=== PATIENT | female | born 1980 | race Caucasian/White ===

== ENCOUNTER 2021-06-23 16:42 | Emergency (ER) | payer MEDICAID, SELFPAY ==
--- NOTE | ~2021-06-23 | CT_ITS ---
CT ANGIOGRAM NECK CLINICAL INFORMATION: History of vertebral artery dissection. Rule out dissection. COMPARISON: CTA of the neck 07/19/2020. TECHNIQUE: A multidetector CTA acquisition of the neck is obtained following the administration of 70 mL of Omnipaque 350 intravenous contrast without complication. Vascular post-processing, including 2-dimensional and 3-dimensional reformatted images were created and reviewed on an independent workstation under concurrent physician supervision. Stenoses are graded per criteria similar to NASCET. This CT examination was performed using dose optimization techniques as appropriate, variously including the following: *Automated exposure control *Adjustment of mA and/or kV according to patient size (this includes techniques or standardized protocols for targeted exams where dose is matched to indication/reason for exam; i.e. extremities or head) *Use of iterative reconstruction technique FINDINGS: The right vertebral artery is dominant and the vertebral arteries are widely patent throughout their cervical course. The common carotid arteries, the carotid bifurcations, and the cervical internal carotid arteries are widely patent. There is no evidence of arterial dissection. Partially imaged intracranial arterial vasculature is unremarkable. The partially imaged intracranial compartment is unremarkable. No significant soft tissue findings are appreciated within the neck. There are no acute osseous findings. Reversal of the cervical lordosis. The imaged upper lungs are clear. Mild secretions within the right sphenoid sinus and mild mucosal thickening within the maxillary sinuses bilaterally. CT/CT angio neck IMPRESSION: Unremarkable CTA of the neck. There is no evidence of arterial dissection.
--- NOTE | ~2021-06-23 | XR_ITS ---
EXAMINATION: XR SHOULDER, RIGHT CLINICAL INFORMATION: Shoulder pain COMPARISON: None TECHNIQUE: Three views of the right shoulder. FINDINGS: The bones and soft tissues are normal. No fracture. Glenohumeral and acromioclavicular alignment is anatomic with normal joint space. No abnormal soft tissue calcifications. XR/XR shoulder RT min 2V IMPRESSION: Normal right shoulder.
[2021-06-23 17:14] VITALS: BP 138/91; PULSE 86; RESP 22; TEMP 37.6; O2SAT 98; BMI 22.4
[2021-06-23 17:56] LABS: Glucose Urine UA NEG (NEG); Leukocyte Esterase Urine NEG (NEG); Nitrite Urine NEG (NEG); Specific Gravity - Urine 1.015 (1.005-1.025); Urine Blood TRACE (NEG); Urine Ketones 5 MG/DL (NEG); Urine Protein NEG (NEG-TRACE)
[2021-06-23 17:57] LABS: Appearance Urine CLEAR; Color Urine STRAW
[2021-06-23 18:06] LABS: Bacteria Urine TRACE /LPF; RBC Urine 0-2 /HPF (0); Squamous Epithelial Cell Urine TRACE /LPF; WBC Urine 0-2 /HPF (0-4)
[2021-06-23 18:46] VITALS: BP 148/83; PULSE 69; RESP 18; TEMP 36.6; O2SAT 100
--- NOTE | 2021-06-23 18:46 | ED.EXTPRO ---
HPI - Extremity Problem General Chief complaint: Extremity Injury, Upper Stated complaint: sholder pain Time Seen by Provider: 06/23/21 18:28 History of Present Illness HPI Narrative: Patient complains of right neck and shoulder pain worsening over past 2 days, pain is severe and patient does not recall any injury. Pain is worse with movement Patient has a history of vertebral artery dissection in the past that was accompanied by neurologic symptoms, today she has no headache no numbness or weakness no tingling no vision change Related Data Previous Rx's Medication Instructions Recorded hydrocodone-acetaminophen 1 tab PO Q6H PRN #14 tab 06/23/21 ibuprofen 600 mg PO Q6H PRN #20 tab 06/23/21 Allergies Allergy/AdvReac Type Severity Reaction Status Date / Time cayenne [CAYENNE] Allergy Severe ANAPHYLAXIS Unverified 08/17/20 19:40 cumin [CUMIN] Allergy Severe ANAPHYLAXIS Unverified 08/17/20 19:40 CHILI POWDER Allergy Severe ANAPHYLAXIS Uncoded 08/17/20 19:40 Review of Systems Review of Systems: Positive for right-sided lower neck trapezius and shoulder pain Negatives no fever no chills no dizziness no weakness no fainting no feeling faint no headache no chest pain no shortness of breath no vision changes no nausea or vomiting no rash no confusion no difficulty forming words no balance issues no motor weakness no loss of sensation Yes all other systems are reviewed and are negative [facility] Past Medical History [facility] Narrative: Patient had vertebral artery dissection in 2014 Source: nursing notes reviewed Surgical History (Updated 06/23/21 @ 17:17 by Graham Davis) H/O tubal ligation Social History Social History Advance Directives: No Advance Directives Information Provided: No Patient : No Physical Exam Vital Signs: Vital Signs: Last Vital Signs Temp 97.8 F 06/23/21 18:46 Pulse 69 06/23/21 18:46 Resp 18 06/23/21 18:46 BP 148/83 H 06/23/21 18:46 Pulse Ox 100 06/23/21 18:46 Body Mass Index 22.4 General appearance no acute distress The head is normocephalic atraumatic Pupils equal round reactive to light Extraocular motions are intact The neck was supple with full range of motion, there was very mild right lateral neck pain as well as right anterior trapezius pain The chest was clear to auscultation bilateral with full symmetric equal breath sounds, there was no chest wall tenderness, skin was normal in appearance The abdomen soft nontender The extremities the right shoulder had pain with extension abduction and external rotation, it was neurovascular intact distal, there was tenderness to the deltoid area the posterior shoulder and the superior shoulder and range of motion was limited there was no swelling no redness Other extremities were normal Skin no rash Neuro cranial nerves 2-12 intact as tested patient was A&O x3, speech both expression and understanding were normal, gait and balance were normal, motor was 5/5 x4 Course Course Course Narrative: Patient with right neck and right shoulder pain with history of vertebral artery dissection is very uncomfortable, pain is reproduced by movement, there are no neurologic symptoms, neurologic exam was normal Case was discussed with attending physician Dr. Bae who advised get a CTA of the neck to rule out vertebral artery dissection, head imaging was not needed as patient has no headache or neurologic symptoms There were no acute abnormalities CT was done and with CT pending case was signed out to physician latoya to follow up and address CT a of the neck to rule out vertebral artery dissection MDM - Extremity (Nontraumatic) Lab Data Attestation: I reviewed the patient's lab results. Result diagrams: 06/23/21 18:50 06/23/21 18:50 Labs: Lab Results 06/23/21 06/23/21 06/23/21 Range/Units 17:36 17:36 18:50 WBC 9.6 (4.8-10.8) X10*3/uL RBC 5.03 (4.20-5.50) X10*6/uL Hgb 14.5 (12.0-16.0) g/dl Hct 44.0 (37-47) % MCV 87.5 (80-98) fL MCH 28.8 (27.0-33.0) pg MCHC 33.0 (31.0-35.0) g/dl RDW 12.4 (11.0-16.0) % Plt Count 273 (160-400) X10*3/uL MPV 9.7 (9.4-12.3) fL Immature Gran % (Auto) 0.2 (0.0-0.4) % Neut % (Auto) 58.2 (45-73) % Lymph % (Auto) 35.7 (20-40) % Ralls % (Auto) 5.1 (2-11) % Eos % (Auto) 0.5 (0-4) % Baso % (Auto) 0.3 (0-2) % Lymph # (Auto) 3.4 (1.2-4.9) X10*3/uL Ralls # (Auto) 0.5 (0.1-1.2) X10*3/uL Eos # (Auto) 0.1 (0.0-0.4) X10*3/uL Baso # (Auto) 0.0 (0.0-0.2) X10*3/uL Abs Immat Gran (auto) 0.02 (0.00-0.03) X10*3/uL Absolute Neuts (auto) 5.6 (2.0-8.3) X10*3/uL Absolute Nucleated RBC 0.000 (0.0-0.012) X10*3/uL Nucleated RBC % (auto) 0.0 (0.0-0.2) /100WBC Sodium (135-145) mmol/L Potassium (3.3-5.1) mmol/L Chloride (96-108) mmol/L Carbon Dioxide (22-29) mmol/L Anion Gap (12-20) BUN (9-16) mg/dL Creatinine (0.5-1.4) mg/dL Estim Creat Clear Calc Estimated GFR Random Glucose (60-115) mg/dL Calcium (8.4-10.2) mg/dL Urine Color STRAW Urine Appearance CLEAR Urine pH 6.0 (5.0-8.0) Ur Specific Republic 1.015 (1.005-1.025) Urine Protein NEG (NEG-TRACE) MG/DL Urine Glucose (UA) NEG (NEG) MG/DL Urine Ketones 5 (NEG) MG/DL Urine Blood TRACE (NEG) Urine Nitrite NEG (NEG) Ur Leukocyte Esterase NEG (NEG) Urine RBC 0-2 (0) /HPF Urine WBC 0-2 (0-4) /HPF Ur Squamous Epith Cells TRACE /LPF Urine Bacteria TRACE /LPF Urine Test NEGATIVE (NEGATIVE) 06/23/21 Range/Units 18:50 WBC (4.8-10.8) X10*3/uL RBC (4.20-5.50) X10*6/uL Hgb (12.0-16.0) g/dl Hct (37-47) % MCV (80-98) fL MCH (27.0-33.0) pg MCHC (31.0-35.0) g/dl RDW (11.0-16.0) % Plt Count (160-400) X10*3/uL MPV (9.4-12.3) fL Immature Gran % (Auto) (0.0-0.4) % Neut % (Auto) (45-73) % Lymph % (Auto) (20-40) % Ralls % (Auto) (2-11) % Eos % (Auto) (0-4) % Baso % (Auto) (0-2) % Lymph # (Auto) (1.2-4.9) X10*3/uL Ralls # (Auto) (0.1-1.2) X10*3/uL Eos # (Auto) (0.0-0.4) X10*3/uL Baso # (Auto) (0.0-0.2) X10*3/uL Abs Immat Gran (auto) (0.00-0.03) X10*3/uL Absolute Neuts (auto) (2.0-8.3) X10*3/uL Absolute Nucleated RBC (0.0-0.012) X10*3/uL Nucleated RBC % (auto) (0.0-0.2) /100WBC Sodium 138 (135-145) mmol/L Potassium 3.4 (3.3-5.1) mmol/L Chloride 106 (96-108) mmol/L Carbon Dioxide 22 (22-29) mmol/L Anion Gap 13 (12-20) BUN 10 (9-16) mg/dL Creatinine 0.83 (0.5-1.4) mg/dL Estim Creat Clear Calc 65.3 Estimated GFR > 60 Random Glucose 86 (60-115) mg/dL Calcium 9.9 (8.4-10.2) mg/dL Urine Color Urine Appearance Urine pH (5.0-8.0) Ur Specific Republic (1.005-1.025) Urine Protein (NEG-TRACE) MG/DL Urine Glucose (UA) (NEG) MG/DL Urine Ketones (NEG) MG/DL Urine Blood (NEG) Urine Nitrite (NEG) Ur Leukocyte Esterase (NEG) Urine RBC (0) /HPF Urine WBC (0-4) /HPF Ur Squamous Epith Cells /LPF Urine Bacteria /LPF Urine Test (NEGATIVE) Discharge Plan Discharge Clinical Impression: Right shoulder strain Patient Disposition: Home, Self-Care Additional Instructions: Imaging did not show any evidence of vertebral artery dissection now Follow with orthopedist or your doctor for further evaluation of the right shoulder, the x-ray was normal Return any time any worse condition or any concerns Discuss with primary physician whether you should be on daily aspirin as many patients after vertebral artery dissection are on aspirin Prescriptions: New ibuprofen 600 mg tablet 600 mg PO Q6H PRN (Reason: pain) Qty: 20 RF: 0 hydrocodone-acetaminophen 5-325 mg tablet 1 tab PO Q6H PRN (Reason: pain) Qty: 14 RF: 0
[2021-06-23 18:49] LABS: UPreg QC Valid YES; Urine Pregnancy NEGATIVE (NEGATIVE)
[2021-06-23 18:56] LABS: MANUAL DIFF FLAG NO
[2021-06-23 18:58] LABS: Basophils Percent Auto 0.3 % (0-2); Eosinophils Absolute Auto 0.1 X10*3/uL (0.0-0.4); Eosinophils Percent Auto 0.5 % (0-4); Hemoglobin 14.5 g/dl (12.0-16.0); Imm Gran Abs Auto 0.02 X10*3/uL (0.00-0.03); Imm Gran Pct Auto 0.2 % (0.0-0.4); Lymphocytes Absolute Auto 3.4 X10*3/uL (1.2-4.9); Lymphocytes Percent Auto 35.7 % (20-40); Mean Corpuscular Hemoglobin 28.8 pg (27.0-33.0); Mean Corpuscular Volume 87.5 fL (80-98); Mean Platelet Volume 9.7 fL (9.4-12.3); Monocytes Absolute Auto 0.5 X10*3/uL (0.1-1.2); Monocytes Percent Auto 5.1 % (2-11); Neutrophils Absolute Auto 5.6 X10*3/uL (2.0-8.3); Neutrophils Percent Auto 58.2 % (45-73); Platelet Count 273 X10*3/uL (160-400); Red Blood Count 5.03 X10*6/uL (4.20-5.50); Red Cell Distribution Width 12.4 % (11.0-16.0); White Blood Count 9.6 X10*3/uL (4.8-10.8)
[2021-06-23 19:24] LABS: Anion Gap 13 (12-20); Blood Urea Nitrogen 10 mg/dL (9-16); Calcium 9.9 mg/dL (8.4-10.2); Carbon Dioxide 22 mmol/L (22-29); Chloride 106 mmol/L (96-108); Creatinine Clr Calc Pharmacy 65.3; Estimated Glomerular Filt Rate > 60; Glucose Random 86 mg/dL (60-115); Potassium 3.4 mmol/L (3.3-5.1); Sodium 138 mmol/L (135-145)
[2021-06-23] MEDS: Morphine Sulfate 4 MG/ML CARTRIDGE IVPUSH ×2 (19:36→21:29)
[2021-06-23] MEDS: ondansetron HCL 4 MG/2 ML VIAL IVPUSH (19:36)
[2021-06-23] MEDS: iohexoL 350 MG/ML 100 ML INFUS..BTL IV (20:25)
[2021-06-23 22:00] VITALS: PULSE 65; RESP 18; TEMP 36.6; O2SAT 100
== END 2021-06-23 22:25 | disposition home or self-care (01) ==
PROVIDERS: Physician Assistant Medical; Emergency Provider Emergency Medicine; PCP Internal Medicine
DX: S46.911A Strain of unspecified muscle, fascia and tendon at shoulder and upper arm level, right arm, initial encounter (principal); X58.XXXA Exposure to other specified factors, initial encounter; Y93.9 Activity, unspecified; Y92.9 Unspecified place or not applicable; Y99.9 Unspecified external cause status
CPT/HCPCS: 36415; 70498; 73030; 80048; 81001; 81025; 85025; 96374; 96375; 96376; 99284; J2270; J2405; Q9967

== ENCOUNTER 2023-08-27 11:37 | Emergency (ER) | payer MEDICAID, SELFPAY ==
[2023-08-27] VITALS (13 sets, daily range): BP systolic 104–154; BP diastolic 57–86; PULSE 65–89; RESP 12–20; TEMP 36.7–37; O2SAT 97–100; BMI 27.4
--- NOTE | ~2023-08-27 | MR_ITS ---
EXAMINATION: MR BRAIN WITHOUT CONTRAST CLINICAL INFORMATION: History of stroke. Dizziness. COMPARISON: CT head from 08/27/2023. TECHNIQUE: MRI of the brain was obtained using routine sequences without contrast. FINDINGS: Mildly motion degraded exam. No focal restricted diffusion is demonstrated to suggest acute or subacute cerebral ischemia. No evidence of acute or chronic hemorrhagic products on heme-sensitive imaging. Few nonspecific scattered periventricular and deep white matter T2 FLAIR hyperintensities. Proportional prominence of the ventricles and sulcal spaces without evidence of obstructive hydrocephalus. No abnormal mass effect. No midline shift. Normal appearance of the pituitary gland. Normal positioning of the cerebellar tonsils. Normal arterial and venous vascular flow voids are present. Normal, homogeneous marrow signal. Mild mucosal thickening of the paranasal sinuses. Small left-sided mastoid effusion. No signal abnormalities within the right-sided mastoid. MR/MR head/brain wo con IMPRESSION: 1. No acute intracranial abnormalities. 2. Mild nonspecific white matter changes.
--- NOTE | ~2023-08-27 | XR_ITS ---
EXAMINATION: XR CHEST CLINICAL INFORMATION: Chest pain. COMPARISON: None available. TECHNIQUE: Frontal view of the chest was obtained. FINDINGS: The lungs are well expanded. No focal consolidation. No pleural effusion. Cardiac silhouette is within normal limits. XR/XR chest 1V IMPRESSION: No acute abnormality.
--- NOTE | ~2023-08-27 | CT_ITS ---
EXAMINATION: CT angio head neck stroke, CT head/brain wo IV con CLINICAL INFORMATION: Vertigo. Right upper extremity pain. COMPARISON: CT angiogram of the neck 06/23/2021. TECHNIQUE: [employer] images were obtained. A CT angiogram of the head and neck was performed in the arterial phase after the intravenous administration of 70 mL Omnipaque 350. Pre and delayed postcontrast images of the head were also obtained. 3D images were processed on an independent workstation under concurrent supervision. Arterial stenoses are measured in accordance with NASCET criteria or similar method if applicable. This CT examination was performed using dose optimization techniques as appropriate, including one or more of the following: Automated exposure control, iterative reconstruction, and adjustment of technique factors (mA and/or kVp) according to patient size (this includes techniques or standardized protocols for targeted exams where dose is matched to indication/reason for exam). Fleischner Society criteria for the followup of incidental pulmonary nodules was implemented if appropriate. Total exam dose-length product 1362 mGy-cm FINDINGS: Head: There is no acute intracranial hemorrhage. Delayed postcontrast images reveal no abnormal intracranial mass or enhancement. No intracranial mass effect or midline shift. Lateral and third ventricles are normal. No hydrocephalus. Gallegos-white matter differentiation is preserved and there is no evidence of acute territorial infarct. The calvarium and skull base are intact. Mastoid air cells and middle ear cavities are well aerated. Mild paranasal sinus disease primarily affecting the ethmoid air cells. Globes and orbits are grossly symmetric. CT angiogram neck: The aortic arch apex is normal. Origins of major aortic branches are widely patent. Common carotid arteries and carotid bifurcations are unremarkable. No stenosis of the extracranial internal carotid arteries. The cervical segments of the vertebral arteries as well as their origins are patent. CT angiogram head: Intracranial internal carotid arteries are normal. The intradural vertebral artery segments and basilar artery are normal. Anterior, middle, and posterior cerebral artery complexes are normal. No intracranial large vessel occlusion. No identifiable aneurysm or high flow vascular malformation. The timing of the contrast injection provides adequate opacification of the dural venous sinuses which are patent. Other: Soft tissues of the neck including the thyroid gland are normal. No pathologically enlarged cervical lymph nodes. Lung apices are clear. No acute osseous finding. Specific no worrisome lytic or blastic osseous lesion. CT/CT head/brain wo IV con IMPRESSION: Unremarkable CT angiogram of the head and neck. No stenosis of the cervical carotid or vertebral arteries. No intracranial large vessel occlusion. No evidence of acute territorial infarct or hemorrhage. No abnormal intracranial mass or enhancement. This critical result was discussed with Dr Mercado at 3:21 PM on 08/27/2023 and it was ascertained that the content and urgency of the report was understood at the time of direct communication.
--- NOTE | 2023-08-27 11:43 | ECG_ITS ---
Test Reason : cp Blood Pressure : / mmHG Vent. Rate : 070 BPM Atrial Rate : 070 BPM P-R Int : 136 ms QRS Dur : 080 ms QT Int : 440 ms P-R-T Axes : 014 033 005 degrees QTc Int : 475 ms Normal sinus rhythm Normal ECG No previous ECGs available Referred By: Dianna Medrano Electronically Signed By:REECE ECRDA
--- NOTE | 2023-08-27 11:49 | ED.CHESTPAIN ---
HPI - Chest Pain General Chief Complaint: Chest Pain Stated Complaint: R arm numbness/CP/Dizziness Time Seen by Provider: 08/27/23 12:18 Related Data Previous Rx's Medication Instructions Recorded hydrocodone 5 mg-acetaminophen 325 1 tab PO Q6H PRN pain #14 tabs 06/23/21 mg tablet ibuprofen 600 mg tablet 600 mg PO Q6H PRN pain #20 tabs 06/23/21 meclizine 25 mg tablet 25 mg PO TID PRN dizziness #20 tabs 08/27/23 Allergies Allergy/AdvReac Type Severity Reaction Status Date / Time cayenne [CAYENNE] Allergy Severe ANAPHYLAXIS Unverified 08/17/20 19:40 cumin [CUMIN] Allergy Severe ANAPHYLAXIS Unverified 08/17/20 19:40 CHILI POWDER Allergy Severe ANAPHYLAXIS Uncoded 08/17/20 19:40 PMF Past Medical History Surgical History H/O tubal ligation Social History Social History Alcohol intake: never Smoked in Last 30 Days: Yes Use of substances other than those prescribed or required for medical reasons: No Advance Directives: No Advance Directives Information Provided: Yes Patient : No Physical Exam Vital Signs: Vital Signs: Last Vital Signs Temp 98.4 F 08/27/23 21:34 Pulse 72 08/27/23 21:34 Resp 16 08/27/23 21:34 BP 104/64 08/27/23 21:34 Pulse Ox 98 08/27/23 21:34 O2 Del Method Room Air 08/27/23 21:34 O2 Flow Rate 1 08/27/23 18:14 BMI result Body Mass Index 27.4 Course Course Course Narrative: RME:? 43 pmhx of anxiety, UC, vertebral aa dissection presenting with sudden onset of chest discomfort, radiating to back and into right jaw, right arm numbness, SOB, dizziness and feeling like she was going to faint occurring 45 minutes ago. CP noted to be a dull ache. Lungs CTA, RRR EKG, Labs, CXR, Orthostatics ordered Full HPI, ROS and PE to be performed by the primary ED provider. Medications Administered Discontinued Medications Generic Name Dose Route Start Last Admin Trade Name Freq PRN Reason Stop Dose Admin Diazepam 2 mg 08/27/23 12:27 08/27/23 13:34 Diazepam 2 Mg Tablet PO 08/27/23 12:28 2 mg ONCE ONE Administration Iohexol 100 ml 08/27/23 14:08/27/23 14:10 Iohexol 350 Mg/Ml 100 Ml Infus..Btl IV 08/27/23 14:10 70 ml ONCE ONE Administration Ketamine HCl 100 mg 08/27/23 17:30 08/27/23 17:40 Ketamine Hcl/Ns 50 Mg/5 Ml Syringe IVPUSH 08/27/23 17:31 100 mg ONCE ONE Administration Midazolam HCl 2 mg 08/27/23 16:34 08/27/23 16:43 Midazolam Hcl/Pf 2 Mg/2 Ml Vial IVPUSH 08/27/23 16:35 2 mg ONCE ONE Administration Midazolam HCl 2 mg 08/27/23 16:35 08/27/23 17:25 Midazolam Hcl/Pf 2 Mg/2 Ml Vial IVPUSH 08/27/23 16:36 2 mg ONCE ONE Administration Medical Decision Making Lab Data [facility] Lab Attestation statement: I reviewed the patient's lab results. 08/27/23 12:07 08/27/23 12:07 Labs: Lab Results 08/27/23 Range/Units 12:07 WBC 8.1 (4.8-10.8) X10*3/uL RBC 4.55 (4.20-5.50) X10*6/uL Hgb 13.1 (12.0-16.0) g/dl Hct 38.9 (37.0-47.0) % MCV 85.5 (80.0-98.0) fL MCH 28.8 (27.0-33.0) pg MCHC 33.7 (31.0-35.0) g/dl RDW 11.8 (11.0-16.0) % Plt Count 254 (160-400) X10*3/uL MPV 9.8 (9.4-12.3) fL Immature Gran % (Auto) 0.1 (0.0-0.4) % Neut % (Auto) 65.3 (45-73) % Lymph % (Auto) 28.0 (20-40) % Emmons % (Auto) 5.0 (2-11) % Eos % (Auto) 1.2 (0-4) % Baso % (Auto) 0.4 (0-2) % Lymph # (Auto) 2.3 (1.2-4.9) X10*3/uL Emmons # (Auto) 0.4 (0.1-1.2) X10*3/uL Eos # (Auto) 0.1 (0.0-0.4) X10*3/uL Baso # (Auto) 0.0 (0.0-0.2) X10*3/uL Abs Immat Gran (auto) 0.01 (0.00-0.03) X10*3/uL Absolute Neuts (auto) 5.3 (2.0-8.3) x10*3/uL Absolute Nucleated RBC 0.000 (0.0-0.012) X10*3/uL Nucleated RBC % (auto) 0.0 (0.0-0.2) /100WBC Sodium 136 (135-145) mmol/L Potassium 3.6 (3.3-5.1) mmol/L Chloride 102 (96-108) mmol/L Carbon Dioxide 27 (22-29) mmol/L Anion Gap 11 L (12-20) BUN 11 (9-16) mg/dL Creatinine 0.84 (0.5-1.4) mg/dL Estim Creat Clear Calc 76.5 Estimated GFR > 60 Random Glucose 96 (60-115) mg/dL Calcium 9.6 (8.4-10.2) mg/dL Magnesium 2.0 (1.6-2.6) mg/dL Total Bilirubin 0.3 (0.0-1.0) mg/dL AST 20 (5-31) U/L ALT 19 (0-31) U/L Alkaline Phosphatase 65 (39-117) U/L Troponin I High Sens < 2.7 (<3.5-17.0) ng/L Total Protein 7.5 (6.5-8.0) g/dL Albumin 4.4 (3.5-5.0) g/dL Radiology Impression Discussion of test interpretation with radiology: I have reviewed the radiologist's reading. Radiologist Impression: MR/MR head/brain wo con IMPRESSION: 1. No acute intracranial abnormalities. 2. Mild nonspecific white matter changes. Discharge Plan Discharge Clinical Impression: Dizziness Patient Disposition: Home, Self-Care Instructions: Benign Paroxysmal Positional Vertigo (ED) Additional Instructions: Care and cautions as advised Meclizine as prescribed for dizziness every 8 hours as needed Follow with PCP as needed Prescriptions: New meclizine 25 mg tablet 25 mg PO TID PRN (Reason: dizziness) Qty: 20 0RF No Action ibuprofen 600 mg tablet 600 mg PO Q6H PRN (Reason: pain) Qty: 20 0RF hydrocodone-acetaminophen 5-325 mg tablet 1 tab PO Q6H PRN (Reason: pain) Qty: 14 0RF Rx Instructions: Narcotic, no driving for 6 hours after taking this medication Interventions: ED Discharge Assessment Last Done: 08/27/23 21:41 Discharge Date/Time: 08/27/23 21:41
[2023-08-27 12:12] LABS: MANUAL DIFF FLAG NO
[2023-08-27 12:13] LABS: Basophils Percent Auto 0.4 % (0-2); Eosinophils Absolute Auto 0.1 X10*3/uL (0.0-0.4); Eosinophils Percent Auto 1.2 % (0-4); Hematocrit 38.9 % (37.0-47.0); Hemoglobin 13.1 g/dl (12.0-16.0); Imm Gran Abs Auto 0.01 X10*3/uL (0.00-0.03); Imm Gran Pct Auto 0.1 % (0.0-0.4); Lymphocytes Absolute Auto 2.3 X10*3/uL (1.2-4.9); Mean Corpuscular HGB Conc 33.7 g/dl (31.0-35.0); Mean Corpuscular Hemoglobin 28.8 pg (27.0-33.0); Mean Corpuscular Volume 85.5 fL (80.0-98.0); Mean Platelet Volume 9.8 fL (9.4-12.3); Monocytes Absolute Auto 0.4 X10*3/uL (0.1-1.2); Neutrophils Absolute Auto 5.3 x10*3/uL (2.0-8.3); Neutrophils Percent Auto 65.3 % (45-73); Platelet Count 254 X10*3/uL (160-400); Red Blood Count 4.55 X10*6/uL (4.20-5.50); Red Cell Distribution Width 11.8 % (11.0-16.0); White Blood Count 8.1 X10*3/uL (4.8-10.8)
[2023-08-27 12:28] LABS: Alanine Aminotransferase 19 U/L (0-31); Albumin Level 4.4 g/dL (3.5-5.0); Alkaline Phosphatase 65 U/L (39-117); Anion Gap 11 (12-20); Aspartate Amino Transferase 20 U/L (5-31); Bilirubin Total 0.3 mg/dL (0.0-1.0); Blood Urea Nitrogen 11 mg/dL (9-16); Calcium 9.6 mg/dL (8.4-10.2); Carbon Dioxide 27 mmol/L (22-29); Chloride 102 mmol/L (96-108); Creatinine Clr Calc Pharmacy 76.5; Estimated Glomerular Filt Rate > 60; Glucose Random 96 mg/dL (60-115); Potassium 3.6 mmol/L (3.3-5.1); Sodium 136 mmol/L (135-145); Total Protein 7.5 g/dL (6.5-8.0)
--- NOTE | 2023-08-27 12:30 | ED_ITS ---
HPI - Neuro Symptoms/Deficit General Chief Complaint: Chest Pain Stated Complaint: R arm numbness/CP/Dizziness Time Seen by Provider: 08/27/23 12:18 Source: patient Mode of arrival: ambulatory Limitations: no limitations History of Present Illness HPI Narrative: a 43-year-old female came in for evaluation after having a sudden onset of vertigo. Patient was working on computer then started to have a sudden onset of the dizziness and lightheadedness with room spinning and patient also experienced right arm pain with the dizziness and vertigo. That started at 12:00 o'clock, patient with known history of anxiety and also patient had history of vertebral artery dissection required to be on Coumadin for 2 years. No fever, no chills, no blurry vision, no falls. Patient does not appreciate weakness, no numbness or loss of sensation. Patient do not take contraception Or hormonal therapy. Related Data Previous Rx's Medication Instructions Recorded hydrocodone 5 mg-acetaminophen 325 1 tab PO Q6H PRN pain #14 tabs 06/23/21 mg tablet ibuprofen 600 mg tablet 600 mg PO Q6H PRN pain #20 tabs 06/23/21 Allergies Allergy/AdvReac Type Severity Reaction Status Date / Time cayenne [CAYENNE] Allergy Severe ANAPHYLAXIS Unverified 08/17/20 19:40 cumin [CUMIN] Allergy Severe ANAPHYLAXIS Unverified 08/17/20 19:40 CHILI POWDER Allergy Severe ANAPHYLAXIS Uncoded 08/17/20 19:40 Review of Systems 2 Review of Systems: all other systems are reviewed and are negative Constitutional: Reports as per HPI and Reports no additional constitutional complaints Eyes: Reports as per HPI and Reports no additional eye complaints Reports system reviewed and no additional complaints, except as documented Cardiovascular: Reports as per HPI and Reports no additional cardiovascular complaints Respiratory: Reports as per HPI and Reports no additional respiratory complaints Gastrointestinal: Reports as per HPI and Reports no additional gastrointestinal complaints Genitourinary: Reports no additional female genitourinary complaints Musculoskeletal: Reports no additional musculoskeletal complaints Skin/Breast: Reports system reviewed and no additional complaints, except as docu Psychiatric: Reports no additional psychiatric complaints Endocrine: Reports no additional endocrine complaints Hematologic/Lymphatic: Reports no additional hematologic/lymphatic complaints Allergic/Immunologic: Reports no additional allergic/immunologic complaints Reports system reviewed and no additional complaints, except as documented and Reports Abnormal speech present [facility] Past Medical History Surgical History H/O tubal ligation Social History Social History Alcohol intake: never Smoked in Last 30 Days: Yes Use of substances other than those prescribed or required for medical reasons: No Advance Directives: No Advance Directives Information Provided: Yes Patient : No Physical Exam 2 Vital Signs: Vital Signs: Last Vital Signs Temp 98.6 F 08/27/23 14:59 Pulse 70 08/27/23 14:59 Resp 12 08/27/23 14:59 BP 123/76 08/27/23 14:59 Pulse Ox 100 08/27/23 14:59 O2 Del Method Room Air 08/27/23 14:59 BMI result Body Mass Index 27.4 Vital signs have been reviewed and appear to be correct. Blood pressure elevated. Heart rate normal. Respiratory rate normal. Temperature normal. Oxygen saturation normal. Appearance: Alert. Oriented X3. No acute distress. Head: Normal external exam. Normocephalic. Atraumatic. No Wu signs noted. No raccoon eyes noted Eyes: PERRLA. EOMI. Conjunctiva and sclera normal. Eyelids normal. ENT: TM's Normal. Pharynx normal. Uvula midline. Moist mucous membranes. No trismus noted. No drooling noted. No muffled voice noted. Neck: Normal inspection. Neck supple. FROM. No adenopathy. Thyroid Normal. No meningeal signs. No neck mass noted. CVS: Normal heart rate and rhythm. Heart sound normal. No murmurs noted. Pulses normal throughout. Respiratory: No respiratory distress. Painless inspiration. Breath sounds normal. No wheezes/rales/rhonchi noted. Chest nontender. No accessory muscle usage noted or decreased air movement noted. Abdomen: Soft and nontender. Bowel sounds normal in all 4 quadrants. No distention noted. No organomegaly noted. No visible injury noted. Back: No CVA tenderness. Full range of motion noted. Skin: Skin warm and dry. Normal skin color. Normal skin turgor. No rashes/lesions/lacerations noted. Extremities: No lower extremity edema. Extremities exhibit normal range of motion. Extremities nontender. Neuro: Oriented X 3. Cranial nerve exam: II-XII are grossly intact No motor deficit. No sensory deficit. Reflexes normal. Course Course Course Narrative: a 43-year-old female with history of vertebral artery dissection and stroke at age of 33 patient required to be on anticoagulation therapy for 2 years after, presented today with a sudden onset of vertigo and numbness in the right upper extremities given patient history there is a concern of acute stroke, patient had a CT/CT angio of the brain which showed no major vessel occlusion or any other vascular disaster. Patient will be getting an MRI of the brain to rule out acute stroke patient will require sedation for the MRI, sign out to Dr. kendrick Medications Administered Discontinued Medications Generic Name Dose Route Start Last Admin Trade Name Freq PRN Reason Stop Dose Admin Diazepam 2 mg 08/27/23 12:27 08/27/23 13:34 Diazepam 2 Mg Tablet PO 08/27/23 12:28 2 mg ONCE ONE Administration Iohexol 100 ml 08/27/23 14:09 08/27/23 14:10 Iohexol 350 Mg/Ml 100 Ml Infus..Btl IV 08/27/23 14:10 70 ml ONCE ONE Administration Medical Decision Making Differential Diagnosis Differential Diagnoses: The differential diagnosis associated with the presentation includes ( ACS, intracranial bleed, intracranial vessel pathology , Electrolyte abnormality, severe anemia.) Admission/Observation Consideration of admission/observation: Escalation of care including admission/observation considered Lab Data MDM Lab Attestation statement: I reviewed the patient's lab results. 08/27/23 12:07 08/27/23 12:07 Labs: Lab Results 08/27/23 Range/Units 12:07 WBC 8.1 (4.8-10.8) X10*3/uL RBC 4.55 (4.20-5.50) X10*6/uL Hgb 13.1 (12.0-16.0) g/dl Hct 38.9 (37.0-47.0) % MCV 85.5 (80.0-98.0) fL MCH 28.8 (27.0-33.0) pg MCHC 33.7 (31.0-35.0) g/dl RDW 11.8 (11.0-16.0) % Plt Count 254 (160-400) X10*3/uL MPV 9.8 (9.4-12.3) fL Immature Gran % (Auto) 0.1 (0.0-0.4) % Neut % (Auto) 65.3 (45-73) % Lymph % (Auto) 28.0 (20-40) % Mason % (Auto) 5.0 (2-11) % Eos % (Auto) 1.2 (0-4) % Baso % (Auto) 0.4 (0-2) % Lymph # (Auto) 2.3 (1.2-4.9) X10*3/uL Mason # (Auto) 0.4 (0.1-1.2) X10*3/uL Eos # (Auto) 0.1 (0.0-0.4) X10*3/uL Baso # (Auto) 0.0 (0.0-0.2) X10*3/uL Abs Immat Gran (auto) 0.01 (0.00-0.03) X10*3/uL Absolute Neuts (auto) 5.3 (2.0-8.3) x10*3/uL Absolute Nucleated RBC 0.000 (0.0-0.012) X10*3/uL Nucleated RBC % (auto) 0.0 (0.0-0.2) /100WBC Sodium 136 (135-145) mmol/L Potassium 3.6 (3.3-5.1) mmol/L Chloride 102 (96-108) mmol/L Carbon Dioxide 27 (22-29) mmol/L Anion Gap 11 L (12-20) BUN 11 (9-16) mg/dL Creatinine 0.84 (0.5-1.4) mg/dL Estim Creat Clear Calc 76.5 Estimated GFR > 60 Random Glucose 96 (60-115) mg/dL Calcium 9.6 (8.4-10.2) mg/dL Magnesium 2.0 (1.6-2.6) mg/dL Total Bilirubin 0.3 (0.0-1.0) mg/dL AST 20 (5-31) U/L ALT 19 (0-31) U/L Alkaline Phosphatase 65 (39-117) U/L Troponin I High Sens < 2.7 (<3.5-17.0) ng/L Total Protein 7.5 (6.5-8.0) g/dL Albumin 4.4 (3.5-5.0) g/dL Independent Interpretation I performed an independent interpretation of an: CT Scan ( head/CTA head and neck: No acute intracranial pathology, no LVO) Radiology Impression Discussion of test interpretation with radiology: I have reviewed the radiologist's reading. NIH Stroke Scale Time: 12:35 Level of Consciousness: Alert Level of Consciousness Questions: Answers both questions correctly Level of Consciousness Commands: Performs both tasks correctly Best Gaze: Normal Visual: No visual loss Facial Palsy: Normal Motor Arm (Right): No drift Motor Arm (Left): No drift Motor Leg (Right): No drift Motor Leg (Left): No drift Limb Ataxia: Absent Sensory: Normal Best Language: No aphasia Dysarthia: Normal Extinction and Inattention: No abnormality Score: 0 Discharge Plan Discharge Clinical Impression: Dizziness Patient Disposition: Still a Patient Prescriptions: No Action ibuprofen 600 mg tablet 600 mg PO Q6H PRN (Reason: pain) Qty: 20 0RF hydrocodone-acetaminophen 5-325 mg tablet 1 tab PO Q6H PRN (Reason: pain) Qty: 14 0RF Rx Instructions: Narcotic, no driving for 6 hours after taking this medication
[2023-08-27 12:36] LABS: Troponin-I High Sensitivity < 2.7 ng/L (<3.5-17.0)
[2023-08-27] MEDS: diazePAM 2 MG TABLET PO (13:34)
[2023-08-27] MEDS: iohexoL 350 MG/ML 100 ML INFUS..BTL IV (14:10)
--- NOTE | 2023-08-27 15:05 | PC.NURSE ---
Assumed care of patient at 1500, patient resting comfortably on stretcher at this time, offers no complaints to this RN. Requesting water, educated patient that we are waiting for CT scan to come back first.
[2023-08-27] MEDS: Midazolam HCl/PF 2 MG/2 ML VIAL IVPUSH ×2 (16:43→17:25)
[2023-08-27] MEDS: Ketamine HCl/NS 50 MG/5 ML SYRINGE 100 MG IVPUSH (17:40)
--- NOTE | 2023-08-27 18:17 | PC.NURSE ---
This RN brought patient to MRI, 2mg Versed given prior to entering MRI room. No effect on patient, pt did not get sleepy, vitals signs stable. 1mg Versed additional given. Again, no effect. Called MD who verbally told this RN to give 1 mg more of Versed. Total of 4mg of Versed given with no effect. Vital signs continue to be stable HR 68, O2 98%. Called MD who stated he will come down with Ketamine. 50mg IM Ketamine given with MD at bedside. No effect on patient, vitals signs continue to be stable HR 72, O2 98%. Per MD given 50mg IM additional. Pt began falling asleep with positive effect. Patient was able to tolerate MRI. Pt brought back to ED by this RN, vitals continue to be stable. Pt offers no complaints to this RN at this time
== END 2023-08-27 21:41 | disposition home or self-care (01) ==
PROVIDERS: Physician Assistant Medical; Emergency Provider Emergency Medicine; PCP Nurse Practitioner Family
DX: R42 Dizziness and giddiness (principal); M79.601 Pain in right arm; R07.89 Other chest pain; M54.2 Cervicalgia; Z79.899 Other long term (current) drug therapy
CPT/HCPCS: 36415; 70450; 70496; 70498; 70551; 71045; 80053; 83735; 84484; 85025; 93005; 96372; 96374; 96375; 99285; J2250; Q9967